=== PATIENT | female | born 1960 | race Caucasian/White ===

== ENCOUNTER 2017-06-29 12:56 | Day surgery (SDC) | payer OTHER ==
[~2017-06-29] VITALS: Ht 154.9 cm; Wt 50.0 kg
[~2017-06-29 12:56] MED LIST: ALPR.5; ALPR1 PO; BUSP10 PO; CHLO10 PO; CHLO25 PO; CITA20 PO; CLON.1 PO; CLON1; CLON1 PO; CLON2 PO; CONEST.625 PO; ESTR1 PO; FLUO20 PO; HYDACE10B PO; HYDMOR2 PO; IBUP400 PO; LEVSOD100; LEVSOD100 PO; LEVSOD150 PO; LEVSOD175 PO; LEVSOD200; LEVSOD75 PO; LORA1; LORA1 PO; LORA2; LORA2 PO; LORAZEPAM; MEDR5 PO; OMEP20ER PO; OXYACE5T; PARO10 PO; PROP40 PO; PROP80; QUET100 PO; QUET200 PO; RXHYDMOR2 PO; RXLORA1 PO; SERT50; SOMA350 MG; TRAZ150T57 PO
== END 2017-06-29 14:48 | disposition home or self-care (01) ==
LOC: ORSCSDS 12:56
PROVIDERS: Internal Medicine Gastroenterology
PROC: 0D568ZZ Destruction of Stomach, Via Natural or Artificial Opening Endoscopic (ICD-10-PCS; principal; 2017-06-29 14:30)
PROC: 0DB68ZX Excision of Stomach, Via Natural or Artificial Opening Endoscopic, Diagnostic (ICD-10-PCS; principal; 2017-06-29 14:30)
PROC: 0DB98ZX Excision of Duodenum, Via Natural or Artificial Opening Endoscopic, Diagnostic (ICD-10-PCS; principal; 2017-06-29 14:30)
DX: D50.9 Iron deficiency anemia, unspecified (principal); K22.10 Ulcer of esophagus without bleeding; K29.70 Gastritis, unspecified, without bleeding; K29.80 Duodenitis without bleeding; R11.2 Nausea with vomiting, unspecified; R10.9 Unspecified abdominal pain; E03.9 Hypothyroidism, unspecified; Z87.891 Personal history of nicotine dependence; Z79.899 Other long term (current) drug therapy; K44.9 Diaphragmatic hernia without obstruction or gangrene; Q27.33 Arteriovenous malformation of digestive system vessel
CPT/HCPCS: 88305; 88342; J2250; J7120

== ENCOUNTER 2017-10-27 09:06 | Day surgery (SDC) | payer OTHER ==
[~2017-10-27] VITALS: Ht 154.9 cm; Wt 50.2 kg
[2017-10-27] MEDS ORDERED: LOSA25 (09:35)
== END 2017-10-27 11:18 | disposition home or self-care (01) ==
LOC: ORSCSDS 09:06
PROVIDERS: Internal Medicine Gastroenterology
PROC: 0DB68ZX Excision of Stomach, Via Natural or Artificial Opening Endoscopic, Diagnostic (ICD-10-PCS; principal; 2017-10-27 10:30)
PROC: 0DB58ZX Excision of Esophagus, Via Natural or Artificial Opening Endoscopic, Diagnostic (ICD-10-PCS; principal; 2017-10-27 10:30)
DX: E61.1 Iron deficiency (principal); K20.9 Esophagitis, unspecified; K22.2 Esophageal obstruction; K29.70 Gastritis, unspecified, without bleeding; K44.9 Diaphragmatic hernia without obstruction or gangrene; E03.9 Hypothyroidism, unspecified; I10 Essential (primary) hypertension; F41.8 Other specified anxiety disorders; Z87.891 Personal history of nicotine dependence; Z79.899 Other long term (current) drug therapy
CPT/HCPCS: 88305; 88342; J2250; J7120

== ENCOUNTER → 2019-11-21 | Outpatient (CLI) | payer OTHER ==
[~2019-11-21] MED LIST changes: +LOSA25
[2019-11-22 17:09] LABS: HPV 16 Negative (Negative); HPV 18 Negative (Negative); HPV OTHER HR TYPES Negative (Negative)
== END | disposition home or self-care (01) ==
LOC: LAB SHORT 15:30 → LAB 15:30
PROVIDERS: Obstetrics & Gynecology
DX: Z01.419 Encounter for gynecological examination (general) (routine) without abnormal findings (principal)
CPT/HCPCS: 87624; G0123

== ENCOUNTER → 2020-02-17 | Outpatient (CLI) | payer OTHER ==
[~2020-02-17] MED LIST changes: +AMLO5 PO; +AMLODIPINE BESYL5 MG PO; +CLONAZEPAM2 MG PO; +LOSA50 PO; +PANT40; +PANTOPRAZOLE SO40 M2 PO; +QUETIAPINE FUM100 MG PO; +SERT100 PO; +SYNTHROID150 MC1 PO; +ZOLOFT100 MG PO; +[UNRECOGNIZED DRUG - OTHER] PO
== END | disposition home or self-care (01) ==
LOC: LAB SHORT 15:46 → LAB EV 15:46
DX: N39.0 Urinary tract infection, site not specified (principal)
CPT/HCPCS: 87086

== ENCOUNTER → 2020-03-21 | Outpatient (CLI) | payer OTHER ==
[2020-03-21 18:21] LABS: Hematocrit 35.1 % (33.0-51.0); Mean Corpuscular HGB 24.9 pg (26.0-34.0); Mean Corpuscular HGB Conc 31.3 g/dL (31.5-36.5); Mean Corpuscular Volume 79 fL (80-100); Mean Platelet Volume 9.6 fL (9.1-12.4); Platelet Count 488 K/mm3 (150-400); RDW Coefficient Variation 16.2 % (11.7-14.2); RDW Standard Deviation 47.1 fL (35.1-46.3); Red Blood Cell Count 4.42 M/mm3 (3.80-5.20); White Blood Cell Count 7.93 K/mm3 (4.00-11.30)
[2020-03-21 19:16] LABS: Alanine Aminotransfer (ALT/SGP 18 U/L (12-78); Albumin/Globulin Ratio 1.2 (0.8-1.8); Alk Phos 78 U/L (50-136); Anion Gap 7 mmol/L (6-16); Aspartate Aminotrans (AST/SGOT 15 U/L (12-37); Bilirubin, Total 0.2 mg/dL (0.1-1.0); Blood Urea Nitrogen 9 mg/dL (8-24); Bun/Creatinine Ratio 12.5 (12.0-20.0); CO2, Blood 25 mmol/L (21-32); Calcium, Blood 10.1 mg/dL (8.5-10.1); Chloride, Blood 106 mmol/L (98-108); Creatinine, Blood 0.72 mg/dL (0.40-1.00); Globulin, Blood 3.3 g/dL (2.2-4.0); Glomerular Filtration Rate >60 (60-); Glucose, Blood 77 mg/dL (70-99); Potassium, Blood 4.4 mmol/L (3.5-5.5); Sodium, Blood 138 mmol/L (136-145); Total Protein, Blood 7.3 g/dL (6.4-8.2)
[2020-03-22 11:42] LABS: Percent Saturation 4.3 % (15.0-50.0)
== END ==
LOC: LAB 18:14 → LAB SHORT 18:14
PROVIDERS: Nurse Practitioner Family
DX: R50.9 Fever, unspecified (principal)
CPT/HCPCS: 80053; 82728; 83540; 83550; 85027

== ENCOUNTER 2020-08-31 22:02 | Inpatient (IN) | payer OTHER ==
[~2020-08-31] VITALS: Ht 154.9 cm; Wt 100.6 kg
[~2020-08-31 22:02] MED LIST changes: -PANTOPRAZOLE SO40 M2 PO
[2020-08-31 22:40] LABS: BASOPHILS ABSOLUTE AUTO 0.07 K/mm3 (0.00-0.23); BASOPHILS PERCENT AUTO 1 % (0-2); EOSINOPHILS ABSOLUTE AUTO 0.01 K/mm3 (0.00-0.68); EOSINOPHILS PERCENT AUTO 0 % (0-6); Hematocrit 39.7 % (33.0-51.0); Hemoglobin 13.8 g/dL (11.5-16.0); IMMATURE GRAN ABSOLUTE AUTO 0.03 K/mm3 (0.00-0.10); IMMATURE GRAN PERCENT AUTO 0 % (0-1); LYMPHOCYTES ABSOLUTE AUTO 1.03 K/mm3 (0.84-5.20); LYMPHOCYTES PERCENT AUTO 11 % (21-46); MONOCYTES ABSOLUTE AUTO 0.75 K/mm3 (0.16-1.47); MONOCYTES PERCENT AUTO 8 % (4-13); Mean Corpuscular HGB 30.5 pg (26.0-34.0); Mean Corpuscular HGB Conc 34.8 g/dL (31.5-36.5); Mean Corpuscular Volume 88 fL (80-100); Mean Platelet Volume 8.9 fL (9.1-12.4); NEUTROPHILS ABSOLUTE AUTO 7.14 K/mm3 (1.96-9.15); NEUTROPHILS PERCENT AUTO 79 % (41-73); Platelet Count 399 K/mm3 (150-400); RDW Coefficient Variation 14.6 % (11.7-14.2); RDW Standard Deviation 46.2 fL (35.1-46.3); Red Blood Cell Count 4.53 M/mm3 (3.80-5.20); White Blood Cell Count 9.03 K/mm3 (4.00-11.30)
[2020-08-31 23:02] LABS: Alanine Aminotransfer (ALT/SGP 27 U/L (12-78); Albumin, Blood 3.6 g/dL (3.4-5.0); Albumin/Globulin Ratio 0.9 (0.8-1.8); Alk Phos 169 U/L (50-136); Anion Gap 12 mmol/L (6-16); Aspartate Aminotrans (AST/SGOT 27 U/L (12-37); Bilirubin, Total 0.3 mg/dL (0.1-1.0); Blood Urea Nitrogen 14 mg/dL (8-24); Bun/Creatinine Ratio 26.5 (12.0-20.0); CO2, Blood 25 mmol/L (21-32); Calcium, Blood 9.5 mg/dL (8.5-10.1); Chloride, Blood 100 mmol/L (98-108); Creatinine, Blood 0.53 mg/dL (0.40-1.00); Globulin, Blood 3.8 g/dL (2.2-4.0); Glomerular Filtration Rate >60 (60-); Glucose, Blood 115 mg/dL (70-99); Potassium, Blood 3.7 mmol/L (3.5-5.5); Sodium, Blood 137 mmol/L (136-145); Total Protein, Blood 7.4 g/dL (6.4-8.2); Troponin I <0.015 ng/mL (0.000-0.040)
[2020-08-31 23:09] LABS: International Normalized Ratio 0.86; Prothrombin Time Results 9.3 Sec (9.7-11.5)
[2020-09-01 01:02] LABS: Ethanol (Alcohol), Blood, Med 182 mg/dL; Magnesium, Blood 2.1 mg/dL (1.6-2.4)
[2020-09-01] MEDS ORDERED: Carisoprodol350 MG PO (13:07)
[2020-09-01] MEDS ORDERED: CLONAZEPAM2 MG PO (13:08)
[2020-09-01] MEDS ORDERED: LEVSOD150 PO (13:09)
[2020-09-01] MEDS ORDERED: PANTOPRAZOLE SO40 M2 PO (13:10)
[2020-09-01] MEDS ORDERED: SYNTHROID150 MC1 PO (13:11)
--- NOTE | 2020-09-01 16:40 | NUR ---
PT ADMIT TO PCU FROM ER. ABLE TO STAND AND TRANSFER FROM BED. VITAL SIGNS STABLE WITH SLIGHTLY ELEVATED BP. ON ROOM AIR SATING ABOVE 92%. DENIES ANY CHEST PAIN. TELE SHOWING SINUS TACH AT 104. CIWA ASSESSED. SEIZURE PRECAUTIONS IN PLACE. WILL CONTINUE TO MONITOR.
--- NOTE | 2020-09-01 19:21 | NUR ---
SHIFT SUMMARY: PT ALERT AND ORIENTED X4. ON ROOM AIR SATING ABOVE 92%. VITAL SIGNS STABLE WITH ELEVATED BP. DENIES CHEST PAIN. TELE SHOWING SINUS TACH. TREMORS FELT AND VISUALIZED. PT STATES SHE WAS HAVING SOME ANXIETY. ATIVAN GIVEN PER CIWA. CIWA SCORED 10. PT RESTING IN BED AFTER ADMISSION AND ATE DINNER. PT REQUSTING LIBRIUM AFTER DINNER. PT REASSESSED AND LIBRIUM GIVEN PER EMAR. STATES SHE DRINKS A BOX OF WINE EVERY NIGHT AND THAT HER LAST DRINK WAS YESTERDAY. TALKING TO FRIENDS ON PHONE AFTER DINNER AND IN GOOD SPIRITS. EDUCATED INFLATABLE BUILDINGS LAMINATOR LIGHT, FALL PREVENTION AND SAFETY. BED IN LOW LOCKED POSITION.
--- NOTE | 2020-09-01 20:51 | NUR ---
ASSUMED CARE PT ALERT AND ORIENTED. VITALS STABLE. DENIES CHEST PAIN OR SOB. PT IS ON ROOM AIR WITH SATS OF >92%. WILL CONTINUE TO MONITOR.
[2020-09-01 21:09] LABS: U Amphetamine Screen Not Detected; U Barbituate Screen Not Detected; U Benzodiazapine Screen DETECTED; U Buprenorphine Screen Not Detected; U Cannabinoids Screen Not Detected; U Cocaine Screen Not Detected; U Methadone Screen Not Detected; U Methamphetamine Screen Not Detected; U Opiates Screen Not Detected; U Oxycodone Screen Not Detected; U Phencyclidine Screen Not Detected; U Propoxyphene Screen Not Detected
[2020-09-02 04:49] LABS: Hematocrit 41.7 % (33.0-51.0); Hemoglobin 14.2 g/dL (11.5-16.0); Mean Corpuscular HGB 30.6 pg (26.0-34.0); Mean Corpuscular HGB Conc 34.1 g/dL (31.5-36.5); Mean Corpuscular Volume 90 fL (80-100); Mean Platelet Volume 9.7 fL (9.1-12.4); Platelet Count 381 K/mm3 (150-400); RDW Coefficient Variation 15.3 % (11.7-14.2); RDW Standard Deviation 49.5 fL (35.1-46.3); Red Blood Cell Count 4.64 M/mm3 (3.80-5.20); White Blood Cell Count 6.13 K/mm3 (4.00-11.30)
[2020-09-02 05:07] LABS: Albumin, Blood 3.2 g/dL (3.4-5.0); Anion Gap 7 mmol/L (6-16); Blood Urea Nitrogen 15 mg/dL (8-24); Bun/Creatinine Ratio 23.3 (12.0-20.0); CO2, Blood 28 mmol/L (21-32); Calcium, Blood 9.3 mg/dL (8.5-10.1); Chloride, Blood 106 mmol/L (98-108); Creatinine, Blood 0.65 mg/dL (0.40-1.00); Glomerular Filtration Rate >60 (60-); Glucose, Blood 89 mg/dL (70-99); Magnesium, Blood 2.3 mg/dL (1.6-2.4); Phosphorus, Blood 3.2 mg/dL (2.5-4.9); Potassium, Blood 3.4 mmol/L (3.5-5.5); Sodium, Blood 141 mmol/L (136-145)
--- NOTE | 2020-09-02 05:32 | NUR ---
SHIFT SUMMARY PT IS ALERT AND ORIENTED. VITALS HAVE BEEN STABLE. O2 IS >92% ON ROOM. CIWAS HAVE BEEN FROM 9-13 AND PT HAS BEEN MEDICATED PER EMAR. PT HAS COMPLAINED OF MILD HEADACHE AND ANXIETY BUT NO CHEST PAIN OR SOB. HAS BEEN UP TO BSC WITH SBA.
--- NOTE | 2020-09-02 15:55 | NUR ---
Advance Directive(AD) Education conducted. Patient is lying in bed and alert. She tells me about her medical issues and the events that caused her hospitalization. She discusses her plan to stay clean and sober. I encourage self-care. Patient states that she is minimally interested in filling out an AD even after I share with her about its importance and purpose. I leave an AD booklet with patient and she states that she may look it over later. I will continue to remain available to patient and family.
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
--- NOTE | 2020-09-02 22:31 | NUR ---
ASSUMED CARE OF PATIENT AT APPROXIMATELY 1905 FROM GAGE Duran RN. PATIENT ALERT AND ORIENTED X4; FORGETFUL AT TIMES; CIWA 4-10. SBA TO BEDSIDE COMMODE. PATIENT REPORTS HEADACHE RELATED TO WITHDRAWAL SYMPTOMS AND REPORTS LIBRUIM WILL HELP. PATIENT DENIES NUMBNESS, TINGLING, DIZZINESS AND NAUSEA. ST ON TELE; OXYGEN SATURATION ABAOVE 90% ON ROOM AIR. PIV X2 S/L. PATIENT CURRENTLY RESTING IN BED; CALL LIGHT IN REACH; BED IN LOWEST POSISTION; BED ALARM ON
[2020-09-03 04:16] LABS: Albumin, Blood 2.9 g/dL (3.4-5.0); Anion Gap 5 mmol/L (6-16); Blood Urea Nitrogen 17 mg/dL (8-24); Bun/Creatinine Ratio 26.2 (12.0-20.0); CO2, Blood 27 mmol/L (21-32); Calcium, Blood 8.8 mg/dL (8.5-10.1); Chloride, Blood 109 mmol/L (98-108); Creatinine, Blood 0.65 mg/dL (0.40-1.00); Glomerular Filtration Rate >60 (60-); Glucose, Blood 87 mg/dL (70-99); Phosphorus, Blood 3.2 mg/dL (2.5-4.9); Potassium, Blood 3.9 mmol/L (3.5-5.5); Sodium, Blood 141 mmol/L (136-145)
--- NOTE | 2020-09-03 06:53 | NUR ---
NO ACUTE CHANGES.
--- NOTE | 2020-09-03 10:01 | NUR ---
MORNING UPDATE, PT CONTINUES TO HAVE ANXIETY BUT OTHERWISE IS IN STABLE WITHDRAW, CIWA SCORE OF 5 THIS MORNING. PT DENIES NAUSEA AND HEADACHES. PT IS USING ALTERNATE METHODS OF RELAXATION FOR HER ANXIETY TO HELP TIE HER OVER UNTIL NEXT LIBRIUM DOSE. PT IS USING TV, MUSIC, PHONE CALLS, JOURNALING/LETTER WRITING AND BREATHING EXERCISES FOR RELAXATION. PT IS EXCITED TO GO HOME TODAY.
[2020-09-03] MEDS ORDERED: B-1100 M1 PO (12:07)
[2020-09-03] MEDS ORDERED: CHLO25 PO (12:08)
[2020-09-03] MEDS ORDERED: METO50ER PO (12:09)
[2020-09-03] MEDS ORDERED: MULVITA PO (12:10)
--- NOTE | 2020-09-03 12:32 | NUR ---
DISCHARGE PT WAS VERY ANXIOUS TO DISCHARGE TODAY. PT RECEIVED A SHOWER PRIOR TO DISCHARGE. IVS WERE REMOVED AND TELE WAS REMOVED PRIOR TO DISCHARGE. PT WAS DISCHARGED AT APPROXIMATELY 1220. PT AMBULATED OUT TO MEET HER FRIEND. PT MET WITH THE OUTPATIENT CONTACT FOR ALCOHOL REHAB AND HAS AN ASSESSMENT SCHEDULED FOR TOMORROW. PT WAS EDUCATED ON HER NEW MEDICATIONS, REMINDED NOT TO USE ALCOHOL WITH HER LIBRIUM PRESCRIPTION AND WAS GIVEN A WRITTEN SCRIPT FOR THE LIBRIUM. PT WAS GIVEN EDUCATION ABOUT HER FOLLOW UP APPOINTMENTS WELL.
== END 2020-09-03 12:27 | disposition home or self-care (01) | DRG 897 ==
LOC: ER 22:02 → ERHOLD 09-01 05:09 → PCU 09-01 16:34
PROVIDERS: Emergency Medicine; Internal Medicine; ADMIT Internal Medicine
DX: F10.239 Alcohol dependence with withdrawal, unspecified (principal); I10 Essential (primary) hypertension; E03.9 Hypothyroidism, unspecified; F41.9 Anxiety disorder, unspecified; F32.9 Major depressive disorder, single episode, unspecified; E87.6 Hypokalemia; K21.9 Gastro-esophageal reflux disease without esophagitis; F19.10 Other psychoactive substance abuse, uncomplicated
CPT/HCPCS: 36415; 71046; 80053; 80069; 83690; 83735; 83880; 84484; 85025; 85027; 85610; 93005; 93010; 96374; 96375; 96376; 99285-25; A9270; G0480; J0360; J1650; J2060; J2405; J3411; J3475; J7042

== ENCOUNTER 2021-02-10 00:49 | Emergency (ER) | payer OTHER ==
[~2021-02-10] VITALS: Ht 154.9 cm; Wt 48.5 kg
[~2021-02-10 00:49] MED LIST changes: +B-1100 M1 PO; +Carisoprodol350 MG PO; +METO50ER PO; +MULVITA PO; +PANTOPRAZOLE SO40 M2 PO
[2021-02-10] MEDS ORDERED: CHLO25 PO (01:23)
== END 2021-02-10 01:45 | disposition home or self-care (01) ==
LOC: ER 00:49
DX: F10.20 Alcohol dependence, uncomplicated (principal); T51.0X1A Toxic effect of ethanol, accidental (unintentional), initial encounter; I10 Essential (primary) hypertension; E03.9 Hypothyroidism, unspecified; F41.9 Anxiety disorder, unspecified; F32.9 Major depressive disorder, single episode, unspecified; Z87.891 Personal history of nicotine dependence; Z88.8 Allergy status to other drugs, medicaments and biological substances
CPT/HCPCS: 99283; A9270

== ENCOUNTER 2023-08-14 13:24 | Inpatient (IN) | payer OTHER ==
[~2023-08-14] VITALS: Ht 154.9 cm; Wt 55.0 kg
[~2023-08-14 13:24] MED LIST changes: +HYDHCL25 PO; +ONDA4ODT MM
[2023-08-14 14:27] LABS: Source, Urine Voided
[2023-08-14 14:31] LABS: Appearance, Urine Cloudy (Clear); Bilirubin, Urine Neg (Neg); Blood, Urine 2+ (Neg); Color, Urine Yellow (P-Yellow); Glucose Qualitative, Urine Neg (Neg); Ketones, Urine Neg (Neg); Leukocyte Esterase, Urine 3+ (Neg); Nitrite, Urine Neg (Neg); Protein, Urine 2+ (Neg); Urobilinogen, Urine NORM (Normal)
[2023-08-14 14:38] LABS: Bacteria Many /hpf; Squamous Epithelial Cells Few /hpf (Few); Transitional Epithelial Cells Few /hpf (0-Rare); White Blood Cells, Urine 25-50 /hpf (0-5)
[2023-08-14 14:39] LABS: Hyaline Casts 0-2 /lpf (0-2)
[2023-08-14 14:42] LABS: U Amphetamine Screen Not Detected; U Barbituate Screen Not Detected; U Benzodiazapine Screen DETECTED; U Buprenorphine Screen Not Detected; U Cannabinoids Screen DETECTED; U Cocaine Screen Not Detected; U Methadone Screen Not Detected; U Methamphetamine Screen Not Detected; U Opiates Screen Not Detected; U Oxycodone Screen Not Detected; U Phencyclidine Screen Not Detected
[2023-08-14 15:10] LABS: BASOPHILS ABSOLUTE AUTO 0.04 K/mm3 (0.00-0.23); BASOPHILS PERCENT AUTO 0 % (0-2); EOSINOPHILS ABSOLUTE AUTO 0.05 K/mm3 (0.00-0.68); EOSINOPHILS PERCENT AUTO 0 % (0-6); Hematocrit 22.7 % (33.0-51.0); Hemoglobin 6.8 g/dL (11.5-16.0); IMMATURE GRAN ABSOLUTE AUTO 0.04 K/mm3 (0.00-0.10); IMMATURE GRAN PERCENT AUTO 0 % (0-1); LYMPHOCYTES ABSOLUTE AUTO 0.86 K/mm3 (0.84-5.20); LYMPHOCYTES PERCENT AUTO 7 % (21-46); MONOCYTES ABSOLUTE AUTO 0.91 K/mm3 (0.16-1.47); MONOCYTES PERCENT AUTO 7 % (4-13); Mean Corpuscular HGB 20.6 pg (26.0-34.0); Mean Corpuscular Volume 69 fL (80-100); Mean Platelet Volume 9.9 fL (9.1-12.4); NEUTROPHILS ABSOLUTE AUTO 11.18 K/mm3 (1.96-9.15); NEUTROPHILS PERCENT AUTO 85 % (41-73); Platelet Count 365 K/mm3 (150-400); RDW Coefficient Variation 18.6 % (11.7-14.2); RDW Standard Deviation 44.4 fL (35.1-46.3); White Blood Cell Count 13.08 K/mm3 (4.00-11.30)
[2023-08-14 15:38] LABS: Alanine Aminotransfer (ALT/SGP 16 U/L (12-78); Albumin, Blood 3.3 g/dL (3.4-5.0); Albumin/Globulin Ratio 0.9 (0.8-1.8); Alk Phos 85 U/L (50-136); Anion Gap 5 mmol/L (6-16); Aspartate Aminotrans (AST/SGOT 15 U/L (12-37); Bilirubin, Total 0.3 mg/dL (0.1-1.0); Blood Urea Nitrogen 22 mg/dL (8-24); CO2, Blood 22 mmol/L (21-32); Chloride, Blood 112 mmol/L (98-108); Creatinine, Blood 0.96 mg/dL (0.40-1.00); Globulin, Blood 3.8 g/dL (2.2-4.0); Glomerular Filtration Rate 68 (60-); Glucose, Blood 129 mg/dL (70-99); Potassium, Blood 3.6 mmol/L (3.5-5.5); Sodium, Blood 139 mmol/L (136-145); Total Protein, Blood 7.1 g/dL (6.4-8.2)
[2023-08-14] MEDS ORDERED: CeFAZolin 1000MG in D5W 50 ML IV ONE (16:00)
[2023-08-14] MEDS ORDERED: LORazepam 2 MG/ML 1ML Injection IV ONE (16:00)
[2023-08-14] MEDS ORDERED: CeFAZolin Sodium 1,000 MG in NS 50 ML IV ONE (16:05)
[2023-08-14] MEDS ORDERED: LORazepam 2 MG/ML 1ML Injection IV PRN ×2 (16:50→23:13)
[2023-08-14] MEDS ORDERED: FLU VACC QS2023-24(6MOS UP)/PF 60 MCG/0.5 ML SYRINGE IM ONE (17:00)
[2023-08-14] MEDS ORDERED: Acetaminophen 325 MG TABLET PO PRN (17:00)
[2023-08-14] MEDS ORDERED: Magnesium Hydroxide Conc 10 ML UDC PO PRN (17:00)
[2023-08-14] MEDS ORDERED: Metoclopramide HCl 5MG / ML 2ML Vial IV PRN (17:00)
[2023-08-14] MEDS ORDERED: D5W-1/2NS KCl 20mEq 1,000 ML IV SCH (17:00)
[2023-08-14 17:16] LABS: Ferritin, Serum 22 ng/mL (8-252); Iron Serum 14 ug/dL (50-170)
[2023-08-14 17:19] LABS: Percent Saturation 2.5 % (15.0-50.0); Total Iron Binding Capacity 552 ug/dL (250-450)
[2023-08-14] MEDS ORDERED: CefTRIAXone Sodium 1,000 MG in NS 50 ML IV SCH (18:00)
[2023-08-14 18:49] VITALS: BP 135/73
--- NOTE | 2023-08-14 19:07 | NUR ---
PCU TRANSFER NOTE PT ARRIVED TO PCU AT APPROX. 1650. SHE IS CONFUSED, VSS. THIS RN WAS UNABLE TO ASSESS CERTAIN ELEMENTS OF ADMISSION ASSESSMENT DUE TO AMS. BLOOD SLIP SENT BY PEYTON RUSH RN. BED ALARM IS ON, CALL LIGHT IS W/IN REACH.
[2023-08-14] MEDS ORDERED: NS 500 ML IV SCH (20:30)
[2023-08-14 20:37] LABS: Salicylate <1.7 mg/dL (2.8-20.0)
[2023-08-14 20:39] LABS: Acetaminophen, Random <2.0 ug/mL (10.0-30.0)
--- NOTE | 2023-08-14 20:53 | NUR ---
POISON CONTROL SPOKE WITH [facility] POISON CONTROL RN, PLACED ORDERS FOR EKG & LABS PER RECOMMENDATION. REPORTED RESULTS BACK OF SALICYLATE, ACETIMINOPHEN WELL EKG QRS, QTC, AND RHYTHM. UPDATED ON VITALS AND MENTATION WELL. NO FURTHER RECOMMENDATIONS AT THIS TIME. WILL FOLLOW UP.
[2023-08-14 20:59] VITALS: BP 117/57
[2023-08-14] MEDS ORDERED: Lactobacil 2-S.Thermo-Bifido 1 1 Cap PO SCH (21:00)
[2023-08-14 21:10] VITALS: BP 131/69
[2023-08-14 21:33] VITALS: BP 133/73
[2023-08-14 22:35] VITALS: BP 148/76
[2023-08-14 23:34] VITALS: BP 147/74
--- NOTE | 2023-08-14 23:38 | NUR ---
ASSUMPTION OF CARE/PATIENT UPDATE THIS RN ASSUMED CARE OF PATIENT AT 1900. PT RESPONDS TO VERBAL STIMULI, ORIENTED TO SELF ONLY. NONSENSICAL CONFUSED SPEECH NOTED. PT NOT FOLLOWING COMMANDS OR ANSWERING QUESTIONS APPROPRIATELY. APPEARS RESTLESS. TREMORS AND RIGIDITY NOTED WITH MOVEMENT. NO PATENT IV AT TIMES OF SHIFT CHANGE, 2 PIV'S STARTED. FLUIDS AND BLOOD INFUSING PER EMAR. SLUGGISH PUPIL RESPONSE NOTED. BP STABLE. SR ON MONITOR WITH HR 90'S. ON 2L VIA NC WITH SPO2 >92%. BLADDER SCAN PERFORMED SHOWING APPROXIMATELY >600MLS. PT NOT UNDERSTANDING DIRECTIONS TO USE BEDPAN OR COMMODE. STRAIGHT CATH PERFORMED WITH 725MLS OUT. MEDICATED PER EMAR FOR ANXIETY WITH ATIVAN. CALL PLACED TO MD WADE REGARDING CONTINUED ANXIETY, PULLING AT LINES AND ATTEMPTING OOB UNSAFELY, ORDER INCREASED TO 1-2MG. PT CONTINUES TO BE ANXIOUS DESPITE INCREASED DOSE. PT REACHING/POINTING TOWARDS WALL, TALKING TO SELF. UNABLE TO MAKE NEEDS KNOWN. THIS RN SITTING OUTSIDE OF PT'S ROOM FOR INCREASED OBSERVATION FOR SAFETY. BED ALARM ON. BED IN LOWEST POSITION AND CALL LIGHT WITHIN REACH.
[2023-08-15 03:37] VITALS: BP 140/78
[2023-08-15 04:09] LABS: BASOPHILS ABSOLUTE AUTO 0.05 K/mm3 (0.00-0.23); BASOPHILS PERCENT AUTO 1 % (0-2); EOSINOPHILS ABSOLUTE AUTO 0.02 K/mm3 (0.00-0.68); EOSINOPHILS PERCENT AUTO 0 % (0-6); Hematocrit 26.7 % (33.0-51.0); Hemoglobin 8.3 g/dL (11.5-16.0); IMMATURE GRAN ABSOLUTE AUTO 0.05 K/mm3 (0.00-0.10); IMMATURE GRAN PERCENT AUTO 1 % (0-1); LYMPHOCYTES ABSOLUTE AUTO 1.18 K/mm3 (0.84-5.20); LYMPHOCYTES PERCENT AUTO 13 % (21-46); MONOCYTES ABSOLUTE AUTO 0.97 K/mm3 (0.16-1.47); MONOCYTES PERCENT AUTO 11 % (4-13); Mean Corpuscular HGB 22.1 pg (26.0-34.0); Mean Corpuscular HGB Conc 31.1 g/dL (31.5-36.5); Mean Corpuscular Volume 71 fL (80-100); Mean Platelet Volume 9.9 fL (9.1-12.4); NEUTROPHILS ABSOLUTE AUTO 6.71 K/mm3 (1.96-9.15); NEUTROPHILS PERCENT AUTO 75 % (41-73); NRBC ABSOLUTE 0.04 K/mm3 (0.00-0.02); NRBC Auto 0.4 /100 WBC (0.0-0.2); Platelet Count 342 K/mm3 (150-400); RDW Coefficient Variation 22.2 % (11.7-14.2); RDW Standard Deviation 55.5 fL (35.1-46.3); Red Blood Cell Count 3.75 M/mm3 (3.80-5.20); White Blood Cell Count 8.98 K/mm3 (4.00-11.30)
[2023-08-15 04:35] LABS: Albumin, Blood 2.9 g/dL (3.4-5.0); Albumin/Globulin Ratio 0.8 (0.8-1.8); Bilirubin, Total 0.4 mg/dL (0.1-1.0); Bun/Creatinine Ratio 20.9 (12.0-20.0); Calcium, Blood 8.5 mg/dL (8.5-10.1); Creatinine, Blood 0.81 mg/dL (0.40-1.00); Globulin, Blood 3.6 g/dL (2.2-4.0); Magnesium, Blood 2.1 mg/dL (1.6-2.4); Potassium, Blood 4.3 mmol/L (3.5-5.5); Total Protein, Blood 6.5 g/dL (6.4-8.2)
--- NOTE | 2023-08-15 05:04 | NUR ---
SHIFT SUMMARY NO ACUTE CHANGES SINCE PREVIOUS NOTE. NO CHANGES TO NEURO. PT APPEARS TO HAVE BEEN SLEEPING SINCE PREVIOUS NOTE. ROUSES EASILY WITH VERBAL STIMULI. BLADDER SCAN AT 0430 SHOWING APPROXIMATELY 150MLS IN BLADDER; NO STRAIGHT CATH PERFORMED AT THIS TIME. FLUIDS INFUSING PER EMAR. VITALS STABLE. ON 2L VIA NC. BED ALARM ON FOR SAFETY. 1U PRBC'S INFUSED. BED IN LOWEST POSITION AND CALL LIGHT WITHIN REACH. THIS RN WILL REPORT TO ONCOMING DAYSHIFT RN.
[2023-08-15] MEDS ORDERED: Levothyroxine Sodium 0.15 MG Tab PO SCH (06:00)
[2023-08-15] MEDS ORDERED: Pantoprazole Sodium 20 MG Tab PO SCH (06:00)
[2023-08-15 07:37] VITALS: BP 146/78
[2023-08-15] MEDS ORDERED: Sod Ferric Gluc Complx/Sucrose 125 MG in NS 100 ML IV SCH (09:00)
[2023-08-15] MEDS ORDERED: EUTHYROX125 MCG PO (10:51)
[2023-08-15] MEDS ORDERED: GABA400 PO (10:52)
[2023-08-15] MEDS ORDERED: PANT40 PO (10:52)
[2023-08-15] MEDS ORDERED: CLON.5 PO (10:52)
[2023-08-15] MEDS ORDERED: QUET200 PO (10:53)
[2023-08-15] MEDS ORDERED: METO50ER PO (10:53)
[2023-08-15] MEDS ORDERED: ONDA4ODT MM (10:53)
[2023-08-15 11:23] VITALS: BP 180/82
[2023-08-15] MEDS ORDERED: Furosemide 10 MG/ML 4ML Vial IV ONE (11:45)
[2023-08-15 11:59] LABS: PCO2 Arterial 35.2 mmHg (35-45); pH Blood Arterial 7.34 (7.35-7.45)
[2023-08-15] MEDS ORDERED: Albuterol 2.5 MG/3 ML VIAL INH PRN (12:15)
[2023-08-15] MEDS ORDERED: Ondansetron 4 MG SoluTab MM PRN (15:10)
[2023-08-15 15:50] VITALS: BP 145/72
--- NOTE | 2023-08-15 17:27 | NUR ---
SHIFT SUMMARY; ASSUMED CARE AT 0700. 4L VIA AK WHEN ASSUMING CARE. A/A/0X1-2. ORIENTED TO SELF AND AT TIMES SURROUNDINGS. FORGETFUL BUT REDIRECTS. MID MORNING APPEARS TO BE INCREASINGLY SOB AND EXTREMLY ADJITATED. 02 INCREASED TO 6L, SATS 85-89%. PHONE CALL TO DR. KANG. IV FLUIDS DC'D, BIPAP, ABG, LASIX ORDERED. PLACED ON CIPAP WITH 4-7L BLEED IN O2. MEDICATED FOR ANXIETY PER EMAR. CONTINUES TO PULL MASK OFF AND CLIMB OUT OF BED. SITTER INTIATED AND AT BEDSIDE FOR SAFTEY. UP TO BEDSIDE COMMODE SEVERAL TIMES WITH ASSISTANCE. SATS IMPROVED TO 92% IN LATE AFTERNOON, APPEARS LESS ADJITATED. BLOOD PRESSURE STABLE, WILL CONTINUE TO MONITOR AND TREAT UNTIL CHANGE OF SHIFT, SITTER TO STAY AT BEDSIDE.
[2023-08-15] MEDS ORDERED: LORazepam 2 MG/ML 1ML Injection IV PRN (18:00)
[2023-08-15] MEDS ORDERED: ChlordiazePOXIDE 25 MG Cap PO PRN (18:00)
[2023-08-15 20:20] VITALS: BP 134/63
[2023-08-16] VITALS: BP 137/76
[2023-08-16 04:00] VITALS: BP 141/70
[2023-08-16 05:12] LABS: Hematocrit 31.5 % (33.0-51.0); Hemoglobin 9.9 g/dL (11.5-16.0); Mean Corpuscular HGB 22.1 pg (26.0-34.0); Mean Corpuscular HGB Conc 31.4 g/dL (31.5-36.5); Mean Corpuscular Volume 71 fL (80-100); NRBC ABSOLUTE 0.03 K/mm3 (0.00-0.02); NRBC Auto 0.3 /100 WBC (0.0-0.2); Platelet Count 426 K/mm3 (150-400); RDW Coefficient Variation 22.7 % (11.7-14.2); RDW Standard Deviation 54.4 fL (35.1-46.3); Red Blood Cell Count 4.47 M/mm3 (3.80-5.20); White Blood Cell Count 11.96 K/mm3 (4.00-11.30)
[2023-08-16 06:07] LABS: Albumin, Blood 3.1 g/dL (3.4-5.0); Anion Gap 5 mmol/L (6-16); Blood Urea Nitrogen 16 mg/dL (8-24); Bun/Creatinine Ratio 20.5 (12.0-20.0); CO2, Blood 27 mmol/L (21-32); Calcium, Blood 9.4 mg/dL (8.5-10.1); Chloride, Blood 109 mmol/L (98-108); Creatinine, Blood 0.78 mg/dL (0.40-1.00); Glomerular Filtration Rate 87 (60-); Glucose, Blood 96 mg/dL (70-99); Phosphorus, Blood 3.2 mg/dL (2.5-4.9); Potassium, Blood 3.3 mmol/L (3.5-5.5); Sodium, Blood 141 mmol/L (136-145)
--- NOTE | 2023-08-16 06:48 | NUR ---
SHIFT SUMMARY PATIENT ALERT, ORIENTED x2-3. PATIENT KNOWS SELF, PLACE AND FAMILY. PATIENT STARTING TO CLEAR MENTALLY, ASKING QUESTIONS ABOUT ADMISSION AND ASKING "HOW DID I END UP HERE". BP STABLE. TELE READING SR 80s DURING THE NIGHT. TITRATED TO 3L NC WITH SPO2 >95%. PATIENT IS A STANDBY ASSIST TO BSC, ADEQUATE OUTPUT DURING THE NIGHT. NO OTHER CHANGES DURING THE NIGHT, WILL REPORT TO DAY SHIFT RN.
[2023-08-16 07:16] VITALS: BP 143/69
[2023-08-16] MEDS ORDERED: Potassium Chloride 20 MEQ/15 ML UDC PO ONE (07:50)
[2023-08-16] MEDS ORDERED: Thiamine HCl 100 MG Tab PO SCH (09:00)
[2023-08-16] MEDS ORDERED: Azithromycin 250 MG Tab PO SCH (09:00)
[2023-08-16] MEDS ORDERED: Metoprolol Succinate 50 MG TABCR PO SCH (09:00)
[2023-08-16] MEDS ORDERED: Multivitamins 1 Tab PO SCH (09:00)
[2023-08-16 09:21] LABS: Adenovirus Not Detected (NOT DETECT); Bordetella pertussis Not Detected (NOT DETECT); Chlamydophila pneumoniae Not Detected (NOT DETECT); Coronavirus 229E Not Detected (NOT DETECT); Coronavirus HKU1 Not Detected (NOT DETECT); Coronavirus NL63 Not Detected (NOT DETECT); Coronavirus OC43 Not Detected (NOT DETECT); Human Metapneumovirus Not Detected (NOT DETECT); Human Rhinovirus/Enterovirus Not Detected (NOT DETECT); Influenza A/2009-H1 Not Detected (NOT DETECT); Influenza A/H1 Not Detected (NOT DETECT); Influenza A/H3 Not Detected (NOT DETECT); Influenza B Not Detected (NOT DETECT); Mycoplasma pneumoniae Not Detected (NOT DETECT); Parainfluenza Virus 1 Not Detected (NOT DETECT); Parainfluenza Virus 2 Not Detected (NOT DETECT); Parainfluenza Virus 3 Not Detected (NOT DETECT); Parainfluenza Virus 4 Not Detected (NOT DETECT); Respiratory Syncytial Virus Not Detected (NOT DETECT); SARS-Cov-2 (COVID-19), BioFire Not Detected (NOT DETECT)
[2023-08-16] MEDS ORDERED: ClonazePAM 0.5 MG Tab PO PRN (11:00)
[2023-08-16] MEDS ORDERED: Furosemide 40 MG Tab PO SCH (11:00)
[2023-08-16] MEDS ORDERED: Enoxaparin 40 MG/0.4 ML SYR SC SCH (12:00)
--- NOTE | 2023-08-16 14:50 | NUR ---
Upon receiving a referral for spiritual care, I visited the patient. SHe shares about her lifelong struggle with alcoholism, her many succeessful runs of sobriety (7 yrs, 5 yrs, just before her recent trouble she had 3 months) and she talks about her plan to go to a live-in rehabilitation program. She welcomes prayer and encouragement and is clearly uplifted by the spiritual care visit. I will continue to remain available to patient and family.
[2023-08-16 15:18] VITALS: BP 139/75
--- NOTE | 2023-08-16 17:55 | NUR ---
SHIFT SUMMARY; ASSUMED CARE AT 0700. A/A/OX4, MENTATION GREATLY IMPROVED FROM PREVIOUS SHIFT. PLEASANT AND COOPERATIVE WITH CARE, FOLLOWING INSTRUCTIONS. REPOSITIONS SELF IN BED, SBA TO BSC. 02 VIA NC DECREASED TO 2L, SAT MAINTAINED >92%. DIET ADVANCED TO SOFT, TOLERATED WELL BUT LITTLE APPETITE. STATUS CHANGED TO MEDICAL TODAY, WILL CONTINUE TO MONITOR AND TREAT UNTIL CHANGE OF SHIFT.
[2023-08-16 19:35] VITALS: BP 139/71
[2023-08-16] MEDS ORDERED: QUEtiapine Fumarate 200 MG Tab PO SCH (21:00)
[2023-08-16] MEDS ORDERED: Gabapentin 400 MG Cap PO SCH (21:00)
[2023-08-17 03:41] VITALS: BP 108/63
[2023-08-17 04:15] LABS: Hematocrit 32.8 % (33.0-51.0); Hemoglobin 10.1 g/dL (11.5-16.0); Mean Corpuscular HGB 22.1 pg (26.0-34.0); Mean Corpuscular HGB Conc 30.8 g/dL (31.5-36.5); Mean Corpuscular Volume 72 fL (80-100); Mean Platelet Volume 9.5 fL (9.1-12.4); NRBC ABSOLUTE 0.02 K/mm3 (0.00-0.02); NRBC Auto 0.3 /100 WBC (0.0-0.2); Platelet Count 395 K/mm3 (150-400); RDW Coefficient Variation 23.3 % (11.7-14.2); RDW Standard Deviation 56.3 fL (35.1-46.3); Red Blood Cell Count 4.58 M/mm3 (3.80-5.20); White Blood Cell Count 7.13 K/mm3 (4.00-11.30)
[2023-08-17 04:33] LABS: Albumin, Blood 2.7 g/dL (3.4-5.0); Anion Gap 4 mmol/L (6-16); Blood Urea Nitrogen 17 mg/dL (8-24); Bun/Creatinine Ratio 23.7 (12.0-20.0); CO2, Blood 28 mmol/L (21-32); Calcium, Blood 9.4 mg/dL (8.5-10.1); Chloride, Blood 107 mmol/L (98-108); Creatinine, Blood 0.72 mg/dL (0.40-1.00); Glomerular Filtration Rate 96 (60-); Glucose, Blood 87 mg/dL (70-99); Phosphorus, Blood 3.6 mg/dL (2.5-4.9); Sodium, Blood 139 mmol/L (136-145)
--- NOTE | 2023-08-17 06:22 | NUR ---
SHIFT SUMMARY PT SLEPT THROUGH THE NIGHT. DENIED PAIN OR DISTRESS. O2 IN PLACE THROUGH THE NIGHT. A/OX4. UP TO BSC INDEPENDENTLY. ADDED URINE CULTURE TO ORIGINAL UA BUT ACCORDING TO LAB HAS BEEN DISCARDED.
[2023-08-17 07:38] VITALS: BP 111/57
[2023-08-17] MEDS ORDERED: Potassium Chloride 20 MEQ TabCR PO ONE (09:00)
[2023-08-17] MEDS ORDERED: FURO40 PO (12:53)
[2023-08-17] MEDS ORDERED: FERSU300 PO (12:53)
[2023-08-17] MEDS ORDERED: MULVITA PO (12:53)
[2023-08-17] MEDS ORDERED: POTA10T PO (12:54)
--- NOTE | 2023-08-17 14:15 | NUR ---
DISCHARGED TO HOME A/A/OX4 AMBULATORY ON RA WITH MOTHER, VERBALIZES UNDERSTANDING OF VERBAL AND WRITTEN INSTRUCTIONS.
== END 2023-08-17 13:40 | disposition home or self-care (01) | DRG 917 ==
LOC: ER 13:24 → PCU 17:40
PROVIDERS: Emergency Medicine; Internal Medicine; ADMIT Internal Medicine
PROC: 30233N1 Transfusion of Nonautologous Red Blood Cells into Peripheral Vein, Percutaneous Approach (ICD-10-PCS; principal; 2023-08-14)
DX: T50.911A Poisoning by multiple unspecified drugs, medicaments and biological substances, accidental (unintentional), initial encounter (principal); G92.8 Other toxic encephalopathy; J96.01 Acute respiratory failure with hypoxia; N39.0 Urinary tract infection, site not specified; I50.32 Chronic diastolic (congestive) heart failure; I11.0 Hypertensive heart disease with heart failure; D50.0 Iron deficiency anemia secondary to blood loss (chronic); E03.9 Hypothyroidism, unspecified; F41.9 Anxiety disorder, unspecified; F32.A Depression, unspecified; K21.9 Gastro-esophageal reflux disease without esophagitis; F10.21 Alcohol dependence, in remission; G47.00 Insomnia, unspecified; E87.6 Hypokalemia; Z88.8 Allergy status to other drugs, medicaments and biological substances; Z79.890 Hormone replacement therapy; Z87.891 Personal history of nicotine dependence
CPT/HCPCS: 0202U; 36415; 36430; 36600; 71045; 80053; 80069; 81001; 82728; 82803; 83540; 83550; 83735; 83880; 84145; 84443; 85025; 85027; 86850; 86900; 86901; 86923; 93005; 93010; 93306; 94660; 94762; 96365; 96375; 99285-25; A9270; C9113; G0480; J0690; J0696; J1650; J1940; J2060; J2916; J7040; P9016; P9612

== ENCOUNTER → 2023-11-11 | Outpatient (CLI) | payer OTHER ==
[~2023-11-11] MED LIST changes: +CEPH500 PO; +CLON.5 PO; +EUTHYROX125 MCG PO; +FERSU300 PO; +FURO40 PO; +GABA400 PO; +PANT40 PO; +POTA10T PO
[2023-11-20 09:10] LABS: HPV HIGH RISK BY TMA Not Detected; HPV SOURCE Cervical
== END ==
LOC: LAB SHORT 18:02 → LAB 18:02
PROVIDERS: Family Medicine
DX: Z12.72 Encounter for screening for malignant neoplasm of vagina (principal)
CPT/HCPCS: 87624; G0123

== ENCOUNTER → 2024-02-16 | Outpatient (CLI) | payer OTHER | LOC: LAB SHORT 18:03 → LAB 18:03 | DX: R30.0 Dysuria (principal); R31.9 Hematuria, unspecified; R82.998 Other abnormal findings in urine | CPT/HCPCS: 87086 ==

== ENCOUNTER 2024-09-11 11:20 | Emergency (ER) | payer OTHER ==
[~2024-09-11] VITALS: Ht 154.9 cm; Wt 46.3 kg
[2024-09-11 11:32] VITALS: BP 149/74
[2024-09-11] MEDS ORDERED: QUEtiapine Fumarate 100 MG Tab PO ONE (11:35)
[2024-09-11] MEDS ORDERED: QUET200 PO (11:36)
== END 2024-09-11 13:38 | disposition home or self-care (01) ==
LOC: ER 11:20
DX: R11.2 Nausea with vomiting, unspecified (principal); E03.9 Hypothyroidism, unspecified; I10 Essential (primary) hypertension; Z91.148 Patient's other noncompliance with medication regimen for other reason; Z87.891 Personal history of nicotine dependence; Z88.8 Allergy status to other drugs, medicaments and biological substances; Z79.890 Hormone replacement therapy; Z79.899 Other long term (current) drug therapy; Z59.89 Other problems related to housing and economic circumstances
CPT/HCPCS: 99283; A9270